=== PATIENT | male | born 2000 | race Caucasian/White ===

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

== ENCOUNTER 2022-01-16 00:14 | Emergency (ER) | payer OTHER ==
[~2022-01-16] VITALS: Ht 185.4 cm; Wt 112.5 kg
[~2022-01-16 00:14] MED LIST: IBUP-1007 PO
[2022-01-16 00:17] VITALS: BP 149/73
[2022-01-16] MEDS ORDERED: PRED20TA PO (01:11)
[2022-01-16] MEDS ORDERED: BUTA1TAB23 PO (01:11)
[2022-01-16] MEDS ORDERED: ONDA4TAB12 PO (01:11)
--- NOTE | 2022-01-16 01:12 | PHYS DOC ---
Past Medical History Past Medical History: No Pertinent History Past Surgical History: Tonsillectomy Smoking Status: Current Every Day Smoker Alcohol Use: Rarely Drug Use: Marijuana General Adult EDM: Chief Complaint: HEADACHE HPI: HPI: 21-year-old male presents with report of headache that has been intermittent but persistent for the last 1 week. Reports associated photophobia and nausea. Patient reports tonight had a cough and suddenly had a sharp pain come from behind his right eye radiating back into his head. Patient also reports an episode of epistaxis from left nare. Patient at that time also felt dizzy. Patient reports dizziness has since improved. Patient currently does have a headache. Denies trauma. Denies fever or chills. Denies known sick contact. Patient reports concerned that he needs to be checked out to make sure everything is okay. Patient reports has been taking Tylenol with limited improvement of symptoms. Review of Systems: Review of Systems: Constitutional: Denies fever or chills Eyes: Denies redness or eye pain; reports photophobia HENT: Denies nasal congestion or sore throat; reports episode of epistaxis to left nare Respiratory: Reports 1 episode of cough; denies shortness of breath Cardiovascular: Denies chest pain or palpitations GI: Denies abdominal pain or vomiting; reports nausea : Denies dysuria or hematuria Musculoskeletal: Denies back pain or joint pain Integument: Denies rash or skin lesions Neurologic: Reports headache; denies focal weakness or sensory changes Complete systems were reviewed and found to be within normal limits, except as documented in this note. Heart Score: C/O Chest Pain: N/A Allergies: Allergies: Allergies Coded Allergies Type Severity Reaction Last Updated Verified benztropine Allergy Intermediate 01/16/22 Yes Physical Exam: PE: Constitutional: Well developed, well nourished, no acute distress, non-toxic appearance HENT: Normocephalic, atraumatic, left anterior septal area of prior epistaxis without active bleeding, right TM with mild erythema, left TM clear, pharynx clear and without exudate Eyes: PERRL, EOMI, conjunctiva normal, no discharge, no nystagmus noted Neck: Normal range of motion, no tenderness, supple Lungs & Thorax: No respiratory distress, equal chest rise and fall, clear to auscultation bilaterally Cardiovascular: Regular rate and rhythm, no murmur Abdomen: Soft, no tenderness Skin: Warm, dry, no erythema, no rash Extremities: No tenderness, ROM intact, no edema Neurologic: Alert and oriented X 3, normal motor function, normal sensory function, no focal deficits noted, cerebellar function intact Psychologic: Affect normal, judgment normal Current Patient Data: Vital Signs: Vital Signs Date Time Temp Pulse Resp B/P (MAP) Pulse Ox O2 Delivery O2 Flow Rate FiO2 01/16/22 00:17 98.6 95 20 149/73 (98) 99 Room Air 98.6 EKG: EKG: [] Radiology/Procedures: Radiology/Procedures: [] Course & Med Decision Making: Course & Med Decision Making Patient presents with report of headache that has been persistent for past week. Patient reports associated photophobia and nausea. Denies trauma. Patient is afebrile. No meningeal signs. Patient neurologically intact. Concern for possible sinus issue given redness of right TM and some nasal irritation. Patient did have an episode of epistaxis. Left anterior septum without signs of active bleeding at this time. Symptomatic treatment provided. Patient stable for discharge with outpatient follow-up with PCP and/or neurology. Neurology referral provided. Discussed findings and plan with rito moran and family, who acknowledge understanding and agreement. Opal Disclaimer: Opal Disclaimer: This electronic medical record was generated, in whole or in part, using a voice recognition dictation system. Departure Departure Impression: Primary Impression: Headache Qualified Codes: R51.9 - Headache, unspecified Disposition: HOME / SELF CARE / HOMELESS Condition: STABLE Referrals: NO PCP (PCP) ELVIRA DUPONT MD Patient Instructions: Headache, FAQs, Migraine Headache, [id number], Sinus Headache, [id number] Additional Instructions: Use bedside humidifier especially at night when sleeping. May also use [id number] ibuprofen as needed for pain or discomfort. Scripts Prednisone (PREDNISONE) 20 Mg Tablet 2 TAB PO DAILY for 4 Days, #8 TAB Start this prescription tomorrow 01/17/2022. Prov: TARSHA HUTSON DO 01/16/22 Ondansetron (ONDANSETRON ODT) 4 Mg Tab.rapdis 1 TAB PO PRN Q6-8HRS PRN for NAUSEA, #16 TAB Prov: TARSHA HUTSON DO 01/16/22 Butalb/Acetaminophen/Caffeine ([id number] 50-325-40) 1 Each Tablet 1 EACH PO Q6HRS PRN for HEADACHE, #14 TAB Prov: TARSHA HUTSON DO 01/16/22 TARSHA HUTSON DO January 16, 2022 01:12
[2022-01-16] MEDS ORDERED: BUTALB/APAP/CAFEIN 50/325/40MG TABLET. PO ONE (01:30)
[2022-01-16] MEDS ORDERED: DEXAMETHASONE 4 MG TABLET PO ONE (01:30)
[2022-01-16] MEDS ORDERED: KETOROLAC 30 MG/ML VIAL. IM ONE (01:30)
[2022-01-16] MEDS ORDERED: ONDANSETRON ODT 4 MG TAB.RAPDIS. PO ONE (01:30)
== END 2022-01-16 01:38 | disposition home or self-care (01) ==
LOC: ER 00:14
DX: R51.9 Headache, unspecified (principal); R11.0 Nausea; R04.0 Epistaxis; R05.9 Cough, unspecified; F17.200 Nicotine dependence, unspecified, uncomplicated; Z88.8 Allergy status to other drugs, medicaments and biological substances
CPT/HCPCS: 96372; 99284; J1885